=== PATIENT | female | born 1940 | race Caucasian/White ===

== ENCOUNTER → 2017-07-01 | Outpatient (CLI) | payer OTHER, MEDICARE ==
[~2017-07-01] VITALS: Ht 157.5 cm; Wt 77.7 kg
[~2017-07-01] MED LIST: ADVIL200 MG PO; CALCIUM 250+D1 EACH PO; CALCIUM 500 MG1 EACH PO; CHILDREN'S ASPI81 M1 PO; DAILY VALUE1 EACH PO; OMEPRAZOLE20 MG PO; SYNTHROID112 MCG PO; VITAMIN D31000 UNIT PO
[2017-07-01 10:29] VITALS: BP 148/75
== END | disposition home or self-care (01) ==
LOC: IVINF 10:23
DX: M81.0 Age-related osteoporosis without current pathological fracture (principal)
CPT/HCPCS: 96365; J3489